=== PATIENT | male | born 1965 | race Hispanic/Latino ===

== ENCOUNTER → 2024-08-30 | Outpatient (CLI) | payer BC ==
--- NOTE | 2024-08-30 11:43 | HMCIMG ---
CHEST 2VWS REASON: SHORTNESS OF BREATH COMPARISON: None FINDINGS: Two views of the chest were obtained. Lungs are clear. Heart size is normal. There is no pulmonary vascular congestion. Mediastinum and bony thorax appear unremarkable. IMPRESSION: Normal two view chest x-ray.
== END | disposition home or self-care (01) ==
LOC: RAH 09:37
PROVIDERS: ATTEND Internal Medicine
DX: R06.02 Shortness of breath (principal)
CPT/HCPCS: 71046